=== PATIENT | female | born 1955 | race Caucasian/White ===

== ENCOUNTER 2020-04-15 08:18 | Outpatient (CLI) | payer MEDICARE, MEDICAID, SELFPAY | END 2020-04-15 08:19 | disposition home or self-care (01) | LOC: ANHAUDIO 08:21 | PROVIDERS: PCP Internal Medicine; Visit Provider Internal Medicine | DX: Z01.10 Encounter for examination of ears and hearing without abnormal findings (principal) | CPT/HCPCS: 99199 ==

== ENCOUNTER 2020-09-24 11:18 | Outpatient (CLI) | payer MEDICARE, MEDICAID, SELFPAY | END 2020-09-24 11:19 | disposition home or self-care (01) | LOC: ANHBWCAUD 11:33 | PROVIDERS: PCP Internal Medicine; Visit Provider Internal Medicine | DX: H90.3 Sensorineural hearing loss, bilateral (principal) | CPT/HCPCS: 92557; 92567 ==

== ENCOUNTER 2021-01-06 13:00 | Outpatient (RCR) | payer MEDICAID, SELFPAY | END 2021-01-13 23:59 | disposition home or self-care (01) | LOC: ANHBWCAUD 13:00 | PROVIDERS: PCP Internal Medicine; Visit Provider Internal Medicine | DX: Z46.1 Encounter for fitting and adjustment of hearing aid (principal) | CPT/HCPCS: 99199; V5160; V5261 ==